=== PATIENT | male | born 1990 | race Asian ===

== ENCOUNTER 2021-05-03 19:30 | Emergency (ER) | payer OTHER ==
[~2021-05-03] VITALS: Ht 177.8 cm; Wt 65.8 kg
[2021-05-03 20:53] LABS: PLATELET COUNT 296 K/uL (142-355)
[2021-05-03 21:05] LABS: PARTIAL THROMBOPLASTIN TIME 21.3 SECONDS (24.5-33.6)
[2021-05-03 21:07] LABS: POTASSIUM 4.1 mmol/L (3.6-5.2)
[2021-05-03 22:50] VITALS: BP 132/87; TEMP 98.1
== END 2021-05-03 22:50 | disposition home or self-care (01) ==
LOC: ED 19:30
PROVIDERS: Hospitalist
DX: F10.129 Alcohol abuse with intoxication, unspecified (principal); Y90.6 Blood alcohol level of 120-199 mg/100 ml; V89.2XXA Person injured in unspecified motor-vehicle accident, traffic, initial encounter; Y92.89 Other specified places as the place of occurrence of the external cause
CPT/HCPCS: 36415; 51702; 80053; 80307; 80320; 81000; 85027; 85610; 85730; 96360; 99283; 99284; J1885; Q9963

== ENCOUNTER 2021-06-03 14:20 | Emergency (ER) | payer OTHER ==
[~2021-06-03] VITALS: Ht 177.8 cm; Wt 55.3 kg
[2021-06-03 16:06] VITALS: BP 140/85; TEMP 98
== END 2021-06-03 16:14 | disposition home or self-care (01) ==
LOC: ED 14:20
DX: M25.511 Pain in right shoulder (principal); M75.51 Bursitis of right shoulder; X50.0XXA Overexertion from strenuous movement or load, initial encounter; Y92.89 Other specified places as the place of occurrence of the external cause
CPT/HCPCS: 96372; 99283; J1885

== ENCOUNTER 2021-11-15 16:03 | Emergency (ER) | payer OTHER ==
[~2021-11-15] VITALS: Ht 177.8 cm; Wt 55.3 kg
[2021-11-15 16:22] VITALS: BP 151/89; TEMP 98.8
[2021-11-15 17:49] LABS: PLATELET COUNT 210 K/uL (142-355)
[2021-11-15 18:00] LABS: POTASSIUM 3.8 mmol/L (3.6-5.2)
== END 2021-11-15 18:18 | disposition home or self-care (01) ==
LOC: ED 16:03
PROVIDERS: Emergency Medicine
DX: J06.9 Acute upper respiratory infection, unspecified (principal); J32.8 Other chronic sinusitis; Z20.822 Contact with and (suspected) exposure to COVID-19
CPT/HCPCS: 80048; 85027; 87635; 96372; 99283; J0696; J1100; U0003

== ENCOUNTER 2022-12-02 05:58 | Emergency (ER) | payer OTHER ==
[~2022-12-02] VITALS: Ht 172.7 cm; Wt 59.0 kg
[2022-12-02 06:00] VITALS: BP 145/95; TEMP 98.6
== END 2022-12-02 06:47 | disposition home or self-care (01) ==
LOC: ED 05:58
DX: K62.5 Hemorrhage of anus and rectum (principal); K62.81 Anal sphincter tear (healed) (nontraumatic) (old); K64.8 Other hemorrhoids
CPT/HCPCS: 99283

== ENCOUNTER 2022-12-04 05:58 | Emergency (ER) | payer OTHER ==
[~2022-12-04] VITALS: Ht 172.7 cm; Wt 59.0 kg
[2022-12-04 06:00] VITALS: BP 157/94; TEMP 98.7
[2022-12-04 06:40] LABS: PLATELET COUNT 179 K/uL (142-355)
[2022-12-04 06:52] LABS: POTASSIUM 3.9 mmol/L (3.6-5.2)
== END 2022-12-04 08:10 | disposition home or self-care (01) ==
LOC: ED 05:58
PROVIDERS: Emergency Medicine
DX: K59.09 Other constipation (principal); K64.8 Other hemorrhoids; K62.5 Hemorrhage of anus and rectum; K60.2 Anal fissure, unspecified
CPT/HCPCS: 36415; 80048; 85027; 96360; 99284

== ENCOUNTER 2023-01-03 09:52 | Emergency (ER) | payer OTHER ==
[~2023-01-03] VITALS: Ht 172.7 cm; Wt 59.0 kg
[2023-01-03 09:56] VITALS: BP 145/90; TEMP 99.2
== END 2023-01-03 11:10 | disposition home or self-care (01) ==
LOC: ED 09:52
DX: S80.02XA Contusion of left knee, initial encounter (principal); X58.XXXA Exposure to other specified factors, initial encounter; Y92.89 Other specified places as the place of occurrence of the external cause
CPT/HCPCS: 99282